=== PATIENT | female | born 1995 | race Caucasian/White ===

== ENCOUNTER 2017-03-28 19:47 | Emergency (ER) | payer OTHER ==
--- NOTE | 2017-03-28 20:27 | RAD ---
EXAM: ONE VIEW CHEST 03/28/17 HISTORY: Injury. Patient feel from a horse. COMPARISON: None. FINDINGS: Portable supine chest: Normal cardiac silhouette. Lungs and pleural bases are clear. No masses or consolidation. No pneumoth orax on this supine projection. No osseous abnormalities. IMPRESSION: No acute cardiopulmonary process. POS: [facility]
--- NOTE | 2017-03-28 20:33 | CT ---
EXAM: NONCONTRAST HEAD CT 03/28/17 HISTORY: Patient fell from a horse. Posttraumatic injury and pain. COMPARISON: None. TECHNIQUE: Noncontrast head CT is performed from the skull base to skull vertex. Reformatted images are submitted for interpretation. FINDINGS: No parenchymal hemorrhage. No extra-axial hematoma. No midline shift. Basilar cisterns are patent. Br ain volume is age appropriate. Cortical banerjee-white matter differentiation is preserved. Ventricles and sulci are patent and symmetric. Adequate aeration of the sinuses and mastoid air cells . Calvarium is intact. IMPRESSION: No intracranial posttraumatic sequela. POS: [facility]
--- NOTE | 2017-03-28 20:37 | CT ---
EXAM: CT CERVICAL SPINE WITHOUT CONTRAST 03/28/17 HISTORY: Level II trauma. Patient fell off of a horse. COMPARISON: None. TECHNIQUE: Cervical spine CT is performed without contrast. Reformatted images are submitted for interpretation. FINDINGS: Appropriate alignment of the intra-articular facets as well as the lateral masses of C1 and C2. Intac t odontoid process. No malalignment on the sagittal reformatted images. Cervical spine vertebral body is maintained. No f racture. The visualized upper mediastinum, lung apices, and soft tissue neck structures are unremarka ble. No prevertebral soft tissue swelling or epidural hematoma. Central spinal canal and neural fiordaliza aura are patent. Evaluation is limited by technique. IMPRESSION: No fracture. Results of the head and C-spine CT discussed with Dr. Thomas, 03/28/17 at 8:20 p.m. Taniya MARES POS: [facility]
== END 2017-03-28 20:37 | disposition home or self-care (01) ==
LOC: ERS 19:47
DX: S06.9X9A Unspecified intracranial injury with loss of consciousness of unspecified duration, initial encounter (principal); S90.111A Contusion of right great toe without damage to nail, initial encounter; V80.010A Animal-rider injured by fall from or being thrown from horse in noncollision accident, initial encounter
CPT/HCPCS: 70450; 71045; 72125; G0390